=== PATIENT | male | born 1940 | race Caucasian/White ===

== ENCOUNTER 2019-07-22 08:08 | Day surgery (SDC) | payer MEDICARE, MEDICAID ==
[~2019-07-22] VITALS: Ht 175.3 cm; Wt 99.8 kg
[2019-07-22] VITALS (10 sets, daily range): BP systolic 119–151; BP diastolic 77–87
[~2019-07-22 08:08] MED LIST: Bacitracin 50000 Units Vial ONE; Bacitracin Oint 15gm Tube TOPIC ONE; Gentamicin 80mg/100ml Premix 0 ML IVPB ONE; Hydrogen Peroxide 473ml Bottle TOPIC ONE; Vancomycin 1 GM in D5W 275 ML IVPB ONE; Vancomycin 1gm vial IVPB ONE
[2019-07-22] MEDS ORDERED: Propofol 1,000mg/ 100ml btl IV ONE (08:09)
[2019-07-22] MEDS ORDERED: Rocuronium Bromide 50mg/5ml Inj IV ONE (08:09)
[2019-07-22] MEDS ORDERED: fentaNYL 100 mcg/2 mL IV ONE (08:11)
[2019-07-22] MEDS ORDERED: Ketamine 500mg/10ml vial ONE (08:11)
[2019-07-22] MEDS ORDERED: Sodium Chloride 10ml vial INJ ONE (08:12)
[2019-07-22] MEDS ORDERED: Lidocaine 1% Plain 30 ml INJ ONE ×3 (08:12→11:39)
[2019-07-22] MEDS ORDERED: Lidocaine 1% MPF 10mg/ml 5ml ONE (08:12)
[2019-07-22] MEDS ORDERED: Dexamethasone 4mg/ml vial ONE (08:43)
[2019-07-22] MEDS ORDERED: LR 1000ml 1,000 ML IVLG SCH (08:57)
--- NOTE | 2019-07-22 08:59 | Immediate Post-Op Evaluation ---
Immediate Post-Op Evalulation Immediate Post-Op Evalulation Procedure: Replace Penile Prosthesis Date of Evaluation: Jul 22, 2019 Time of Evaluation: 13:02 IV Fluids: 800 LR Blood Products: 0 Estimated Blood Loss: 10 Urinary Output: 0 Blood Pressure Systolic: 151 Blood Pressure Diastolic: 87 Pulse Rate: 64 Respiratory Rate: 16 O2 Sat by Pulse Oximetry: 99 Temperature (Fahrenheit): 97.6 Pain Score (1-10): 1 Nausea: No Vomiting: No Complications 0 Patient Status: awake, reacts, patent, extubated, none Hydration Status: adequate Dru Gram Vancomycin, 80 mg Gentamicin IV Given Within 1 Hr of Incision: Yes Time Given: 10:21 Bernabe Abdi MD Jul 22, 2019 08:59
[2019-07-22] MEDS ORDERED: DiphenhydrAMINE 50mg/ml Inj IVP PRN (09:00)
[2019-07-22] MEDS ORDERED: HYDROcodone/Acetamin 7.5/325 tab ORAL PRN (09:00)
[2019-07-22] MEDS ORDERED: Atropine Sulfate 0.4mg/ml inj IVP PRN (09:00)
[2019-07-22] MEDS ORDERED: Midazolam 2mg/2ml Inj IVP PRN (09:00)
[2019-07-22] MEDS ORDERED: oxyCODONE HCL/Acetaminophen 5/325mg ORAL PRN (09:00)
[2019-07-22] MEDS ORDERED: LORazepam Inj 2mg/ml 1ml IV PRN (09:00)
[2019-07-22] MEDS ORDERED: Ketorolac 30mg Inj IV PRN ×2 (09:00)
[2019-07-22] MEDS ORDERED: Labetalol 5mg/ml 20ml vial IV PRN (09:00)
[2019-07-22] MEDS ORDERED: Meperidine 50mg/ml Inj(FOR RIGORS ONLY) IVP PRN (09:00)
[2019-07-22] MEDS ORDERED: Hydromorphone 0.5mg/0.5ml inj IVP PRN (09:00)
[2019-07-22] MEDS ORDERED: Acetaminophen (Non formulary) 100 ML IV ONE (09:00)
[2019-07-22] MEDS ORDERED: HYDROcodone/Acetamin 5/325 tab ORAL PRN ×2 (09:00→12:45)
[2019-07-22] MEDS ORDERED: fentaNYL 100 mcg/2 mL IV PRN (09:00)
[2019-07-22] MEDS ORDERED: Metoclopramide 10mg/2ml Inj IVP PRN (09:00)
[2019-07-22] MEDS ORDERED: LION S MANE PO (09:01)
[2019-07-22] MEDS ORDERED: HYDROCHLOROTHIA25 MG ORAL (09:02)
[2019-07-22] MEDS ORDERED: LOSARTAN POTASS25 MG ORAL (09:02)
[2019-07-22] MEDS ORDERED: METFORMIN HCL1000 M1 ORAL (09:03)
[2019-07-22 09:35] LABS: EOSINOPHILS % (AUTO) 2.5 % (0.0-3.0); HEMATOCRIT 39.6 % (42.0-52.0); HEMOGLOBIN 13.4 G/DL (14.2-18.0); LYMPHOCYTES % (AUTO) 26.2 % (20.0-45.0); MEAN CORPUSCULAR VOLUME 94 FL (80-99); MONOCYTES % (AUTO) 9.9 % (1.0-10.0); NEUTROPHILS % (AUTO) 60.3 % (45.0-75.0); PLATELET COUNT 286 K/UL (150-450); RED BLOOD COUNT 4.21 M/UL (4.70-6.10); RED CELL DISTRIBUTION WIDTH 12.4 % (11.6-14.8); WHITE BLOOD COUNT 6.6 K/UL (4.8-10.8)
[2019-07-22 09:53] LABS: ANION GAP 7 mmol/L (5-15); BLOOD UREA NITROGEN 27 mg/dL (7-18); CALCIUM 8.6 MG/DL (8.5-10.1); CARBON DIOXIDE 28 MMOL/L (21-32); CHLORIDE 104 MMOL/L (98-107); CREATININE 1.2 MG/DL (0.55-1.30); POTASSIUM 4.2 MMOL/L (3.5-5.1); SODIUM 139 MMOL/L (136-145)
[2019-07-22] MEDS ORDERED: LR 1000ml ONE (10:00)
[2019-07-22] MEDS ORDERED: Sterile Water Irrig 1000ml IRRIG ONE (10:00)
--- NOTE | 2019-07-22 10:16 | Pre-Procedure Note/Attestation ---
Pre-Procedure Note/Attestation Complete Prior to Procedure Planned Procedure: not applicable Procedure Narrative: Removal and Placement of multicomponent penile prosthesis Indications for Procedure Pre-Operative Diagnosis: impotence Attestation I attest that I discussed the nature of the procedure; its benefits; risks and complications; and alternatives (and the risks and benefits of such alternatives ), prior to the procedure, with the patient (or the patient's legal telecommunications sales representative). I attest that, if there was a reasonable possibility of needing a blood transfusion, the patient (or the patient's legal telecommunications sales representative) was given the [facility] standardized written summary, pursuant to the [place] Blood Safety Act ([place] Health and Safety Code # 1645, as amended). I attest that I re-evaluated the patient just prior to the surgery and that there has been no change in the patient's H&P, except as documented below: Mario Major MD Jul 22, 2019 10:16
--- NOTE | 2019-07-22 10:45 | Anethesia Preoperative Eval ---
Anesthesia Pre-op PMH/ROS General Date of Evaluation: Jul 22, 2019 Time of Evaluation: 10:01 Anesthesiologist: Trinidad ASA Score: ASA 3 Mallampati Score Class I : Soft palate, uvula, fauces, pillars visible Class II: Soft palate, uvula, fauces visible Class III: Soft palate, base of uvula visible Class IV: Only hard plate visible Mallampati Classification: Class II Surgeon: Pedrito Diagnosis: Impotence Surgical Procedure: Replace Penile Prosthesis Anesthesia History: none Family History: no anesthesia problems Allergies: Coded Allergies: No Known Allergies (Verified Allergy, Mild, 12/09/06) Medications: see eMAR Patient NPO?: Yes Past Medical History Cardiovascular: Reports: HTN, other - HL Endocrine: Reports: DM HEENT: Reports: glaucoma Hematology/Immune: Reports: other - Cancer Other: obesity - BMI 35 PSxH Narrative: Prostatectomy, Penile Prosthesis, Cholecystectomy Anesthesia Pre-op Phys. Exam Physician Exam Last Vital Signs Date Time Temp Pulse Resp B/P (MAP) Pulse Ox O2 Delivery O2 Flow Rate FiO2 07/22/19 09:16 Room Air 07/22/19 09:11 98.2 76 20 135/87 97 Constitutional: NAD Neurologic: CN 2-12 intact Cardiovascular: RRR Respiratory: CTA Gastrointestinal: S/NT/ND Airway Exam Mallampati Score: Class II MO: full ROM: full Teeth: missing Dentures: upper, lower Anesthesia Pre-op A/P Labs Hematology Test 07/22/19 07:25 White Blood Count 6.6 K/UL (4.8-10.8) Red Blood Count 4.21 M/UL (4.70-6.10) L Hemoglobin 13.4 G/DL (14.2-18.0) L Hematocrit 39.6 % (42.0-52.0) L Mean Corpuscular Volume 94 FL (80-99) Mean Corpuscular Hemoglobin 31.8 PG (27.0-31.0) H Mean Corpuscular Hemoglobin Concent 33.8 G/DL (32.0-36.0) Red Cell Distribution Width 12.4 % (11.6-14.8) Platelet Count 286 K/UL (150-450) Mean Platelet Volume 6.1 FL (6.5-10.1) L Neutrophils (%) (Auto) 60.3 % (45.0-75.0) Lymphocytes (%) (Auto) 26.2 % (20.0-45.0) Monocytes (%) (Auto) 9.9 % (1.0-10.0) Eosinophils (%) (Auto) 2.5 % (0.0-3.0) Basophils (%) (Auto) 1.0 % (0.0-2.0) Coagulation Test 07/22/19 07:25 Prothrombin Time 10.7 SEC (9.30-11.50) Prothromb Time International Ratio 1.0 (0.9-1.1) Activated Partial Thromboplast Time 30 SEC (23-33) Chemistry Test 07/22/19 07:25 Sodium Level 139 MMOL/L (136-145) Potassium Level 4.2 MMOL/L (3.5-5.1) Chloride Level 104 MMOL/L (98-107) Carbon Dioxide Level 28 MMOL/L (21-32) Anion Gap 7 mmol/L (5-15) Blood Urea Nitrogen 27 mg/dL (7-18) H Creatinine 1.2 MG/DL (0.55-1.30) Estimat Glomerular Filtration Rate mL/min (>60) Glucose Level 139 MG/DL (74-106) H Calcium Level 8.6 MG/DL (8.5-10.1) Pre-Antibiotics Dru Gram Vancomycin, 80 mg Gentamicin IV Given Within 1 Hr of Incision: Yes Time Given: 10:20 Bernabe Abdi MD Jul 22, 2019 10:45
--- NOTE | 2019-07-22 10:46 | 48 Hour Post Anesthesia Eval ---
Post Anesthesia Evaluation Procedure: Replace Penile Prosthesis Date of Evaluation: Jul 22, 2019 Time of Evaluation: 15:12 Blood Pressure Systolic: 161 0: 82 Pulse Rate: 63 Respiratory Rate: 18 Temperature (Fahrenheit): 98 O2 Sat by Pulse Oximetry: 99 Airway: patent Nausea: No Vomiting: No Pain Intensity: 0 Hydration Status: adequate Cardiopulmonary Status: Stable Mental Status/LOC: patient returned to baseline Follow-up Care/Observations: 0 Post-Anesthesia Complications: 0 Follow-up care needed: ready to discharge Bernabe Abdi MD Jul 22, 2019 10:46
[2019-07-22] MEDS ORDERED: Glycopyrrolate 0.2mg/ml 1ml Vial ONE (10:50)
[2019-07-22] MEDS ORDERED: Neostigmine 1mg/ml 10ml Inj ONE (10:50)
[2019-07-22] MEDS ORDERED: Alfentanil 2ml Inj ONE (11:09)
[2019-07-22] MEDS ORDERED: Ketorolac 30mg Inj ONE (12:22)
[2019-07-22] MEDS ORDERED: Propofol 200mg/20ml IV ONE (12:23)
--- NOTE | 2019-07-22 12:40 | Brief Operative Note ---
Immediate Post Operative Note Operative Note Pre-op Diagnosis: impotence Procedure: removal and replacement of 3 piece prosthesis Post-op Diagnosis: same Post-op Diagnosis: same as pre-op Surgeon: Terry Major Anesthesia: general Specimen: yes Complications: none Condition: stable Fluids: 500 Estimated Blood Loss: minimal Implant(s) used?: Yes Mario Major MD Jul 22, 2019 12:40
[2019-07-22] MEDS ORDERED: Tylenol #3 tab (300mg/30mg) ORAL PRN (12:45)
[2019-07-22] MEDS ORDERED: D5 1/2NS 1,000 ML IV SCH (12:45)
[2019-07-22] MEDS ORDERED: HYDROmorphone 1mg/ml Carpuject SUBQ PRN (12:45)
--- NOTE | 2019-07-24 03:45 | Operative Note - Dictated ---
DATE OF OPERATION: 07/22/2019 PREOPERATIVE DIAGNOSIS: Nonfunctioning three-piece prosthesis. PREOPERATIVE DIAGNOSIS: Nonfunctioning three-piece prosthesis. OPERATION: Removal of the three-piece prosthesis and placement of new three-piece . OPERATED BY: Mario Major M.D. ANESTHESIA: General. FINDINGS: Eroded and migrated reservoir of the three-piece prosthesis, nonfunctioning. INDICATION FOR SURGERY: The patient had a penile prosthesis placed many years ago. It was nonfunctioning and developing some scrotal bulging, and attempts to cycle and repair conservatively the prosthesis failed. Treatment options were explained to him in great length including all potential complications. He signed the consent. PROCEDURE IN DETAIL: The patient was brought to the operating room, placed in the supine position, and prepped and draped in standard fashion. A penoscrotal incision was made and the corpora was mobilized on both sides. Butts catheter was placed in the urethra. The old components of the prosthesis were all dissected from the surrounding adhesions in the scrotum. It became very quickly obvious that the reservoir migrated into the scrotal sac from the retroperitoneal space . Bladder was removed and both corpora was opened and old cylinders were also exposed approximately 24 cm, 19 plus 4. The corpora was remeasured, and new cylinders 24 cm were placed and left indwelling. After that, scrotal corpora was closed and incision, and the pump was placed into the subdartos position in the scrotum and secured. The wound was copiously irrigated and the prosthesis was tested and cycled, which was normally inflating and deflating. Wound was closed in 3 layers, subcuticular closure for the skin and dressing. Sponge count and instrument count were correct. Mario Major M.D. DR: NOLAN JOB#: [id number] CC:
== END 2019-07-22 15:00 | disposition home or self-care (01) ==
LOC: SUR 08:08
DX: T83.410A Breakdown (mechanical) of implanted penile prosthesis, initial encounter (principal); X58.XXXA Exposure to other specified factors, initial encounter; Y92.9 Unspecified place or not applicable; I10 Essential (primary) hypertension; E11.9 Type 2 diabetes mellitus without complications; Z90.49 Acquired absence of other specified parts of digestive tract; Z90.79 Acquired absence of other genital organ(s); Z85.9 Personal history of malignant neoplasm, unspecified
CPT/HCPCS: 36415; 54410; 80048; 82962; 85025; 85610; 85730; C1813; J0690; J1100; J1885; J2001; J2405; J2704; J2710; J3370; J3490; J7120; 94003; 94150; J1580